=== PATIENT | female | born 1990 | race Two or more races ===

== ENCOUNTER 2022-02-16 15:29 | Emergency (ER) | payer OTHER ==
[~2022-02-16] VITALS: Ht 162.6 cm; Wt 81.6 kg
[2022-02-16] MEDS ORDERED: ZYRTEC10 M3 (15:52)
== END 2022-02-16 19:39 | disposition home or self-care (01) ==
LOC: ER 15:29
DX: S99.912A Unspecified injury of left ankle, initial encounter (principal); X50.9XXA Other and unspecified overexertion or strenuous movements or postures, initial encounter; Y93.9 Activity, unspecified; Y92.9 Unspecified place or not applicable; Z91.018 Allergy to other foods

== ENCOUNTER 2022-04-10 15:32 | Emergency (ER) | payer OTHER ==
[~2022-04-10] VITALS: Ht 162.6 cm; Wt 81.6 kg
[~2022-04-10 15:32] MED LIST: ZYRTEC10 M3
[2022-04-10] MEDS ORDERED: AMOX-CLAV 875-1 EACH PO (17:03)
[2022-04-10] MEDS ORDERED: PEPCID AC20 MG PO (17:03)
== END 2022-04-10 17:31 | disposition home or self-care (01) ==
LOC: ER 15:32
DX: J03.90 Acute tonsillitis, unspecified (principal); R50.9 Fever, unspecified; R53.81 Other malaise; Z91.018 Allergy to other foods